=== PATIENT | female | born 1930 | race African-American/Black ===

== ENCOUNTER 2018-01-02 16:06 | Inpatient (IN) ==
[2018-01-02] MEDS ORDERED: ALUM/MAG/SIMETH/LIDO VISC 1:1 30 ML BOTTLE PO STA (16:44)
[2018-01-02] MEDS ORDERED: ONDANSETRON 4 MG/2 ML VIAL IV PRN ×2 (16:44→19:02)
[2018-01-02] MEDS ORDERED: SODIUM CHLORIDE 0.9% 1,000 ML IV STA (16:44)
[2018-01-02] MEDS ORDERED: PANTOPRAZOLE 40 MG VIAL IV STA (16:44)
[2018-01-02 17:22] LABS: Apearance,Urine CLEAR (Clear); Bilirubin,Urine Negative (Negative); Blood, Urine Small mg/dL (Negative); Glucose,Urine (UA) Negative (Negative); Hyaline Casts,Urine 1 /LPF (0-3); Ketones,Urine Negative (Negative); Nitrite,Urine Negative (Negative); Protein,Urine 100 MG/DL; RBC,Urine 1 /HPF (0-4); Urine Color Straw (Yellow); Urine Specific Gravity 1.009 (1.001-1.035); Urine Urobilinogen < 2.0 EU/DL (0.2-1.0); WBC,Urine 1 /HPF (0-6)
[2018-01-02 17:56] LABS: Basophils % 0.6 % (0.0-0.8); Eosinophils # 0.1 10*3/uL (0.0-0.87); Eosinophils % 2.9 % (0.00-10.9); Hematocrit 37.5 VOL% (35.7-47.0); Hemoglobin 12.2 GM/DL (12.0-16.0); Immature Granulocytes % 0.4 %; Immature Granulocytes Absolute 0.02 #; Lymphocytes # 1.1 10*3/uL (1.4-4.0); Lymphocytes % 22.7 % (21.3-54.2); Mean Corpuscular HGB Conc 32.5 GM/DL (32-36); Mean Corpuscular Hemoglobin 27 PG (27-34); Mean Corpuscular Volume 81.7 FL (87-102); Mean Platelet Volume 9.9 FL (9.6-12.0); Monocytes # 0.5 10*3/uL (0.11-0.8); Monocytes % 10.5 % (1.7-12.7); Neutrophils % 62.9 % (38.7-73.9); Platelet Count 220 T/CUMM (130-400); Red Blood Count 4.59 MC/CUMM (3.8-5.5); Red Cell Distribution Width 15.6 % (9.3-17.3); White Blood Count 4.8 T/CUMM (4-12)
[2018-01-02 18:21] LABS: Albumin 3.8 G/DL (3.4-5.0); Bilirubin,Total 0.4 MG/DL (0.2-1.0); Calcium 9.9 MG/DL (8.5-10.1); Lactic Acid 1.6 MMOL/L (0.4-2.0); Potassium 3.9 MMOL/L (3.5-5.1); Total Protein 6.7 G/DL (6.4-8.3)
[2018-01-02] MEDS ORDERED: MORPHINE 4 MG/1 ML VIAL IV STA (18:47)
[2018-01-02] MEDS ORDERED: ONDANSETRON 4 MG/2 ML VIAL IV STA (18:47)
[2018-01-02] MEDS ORDERED: hydrALAZINE 20 MG/1 ML VIAL IV STA (18:47)
[2018-01-02] MEDS ORDERED: ASPIRIN CHEW 81 MG TABLET PO STA (18:47)
[2018-01-02] MEDS ORDERED: ENOXAPARIN 80 MG/0.8 ML SYRINGE SUBCUT STA (18:47)
[2018-01-02] MEDS ORDERED: MORPHINE 4 MG/1 ML VIAL IV PRN ×2 (19:02→19:51)
[2018-01-02] MEDS ORDERED: ACETAMINOPHEN 325 MG TABLET PO PRN (19:02)
[2018-01-02] MEDS ORDERED: NITROGLYCERIN SL 0.4 MG TABLET SL PRN (19:07)
[2018-01-02] MEDS ORDERED: MECLIZINE 25 MG TABLET PO PRN (19:07)
[2018-01-02] MEDS ORDERED: DEXTROSE 50% 25 GM/50 ML VIAL IV PRN (20:18)
[2018-01-02] MEDS ORDERED: GLUCAGON 1 MG VIAL IM PRN (20:18)
[2018-01-02] MEDS ORDERED: CARVEDILOL 3.125 MG TABLET PO SCH (21:00)
[2018-01-02] MEDS: GABAPENTIN 300 MG CAPSULE PO SCH (22:10)
[2018-01-02] MEDS: SODIUM CHLORIDE 0.9% 1,000 ML IV SCH (22:10)
[2018-01-02] MEDS: FAMOTIDINE 20 MG TABLET PO SCH (22:10)
[2018-01-02] MEDS: METOPROLOL TARTRATE 50 MG TABLET PO SCH (22:10)
[2018-01-02] MEDS: ALPRAZolam 0.25 MG TABLET PO SCH (22:10)
[2018-01-02] MEDS: INSULIN LISPRO 100 UNIT/ML SUBCUT SCH (22:22)
[2018-01-03 04:40] LABS: Basophils % 0.8 % (0.0-0.8); Eosinophils # 0.2 10*3/uL (0.0-0.87); Eosinophils % 3.5 % (0.00-10.9); Hematocrit 34.4 VOL% (35.7-47.0); Hemoglobin 11.3 GM/DL (12.0-16.0); Immature Granulocytes % 0.2 %; Immature Granulocytes Absolute 0.01 #; Lymphocytes # 1.1 10*3/uL (1.4-4.0); Lymphocytes % 22.4 % (21.3-54.2); Mean Corpuscular HGB Conc 32.8 GM/DL (32-36); Mean Corpuscular Hemoglobin 27 PG (27-34); Mean Corpuscular Volume 81.1 FL (87-102); Mean Platelet Volume 10.5 FL (9.6-12.0); Monocytes # 0.6 10*3/uL (0.11-0.8); Monocytes % 11.9 % (1.7-12.7); Neutrophils % 61.2 % (38.7-73.9); Platelet Count 200 T/CUMM (130-400); Red Blood Count 4.24 MC/CUMM (3.8-5.5); Red Cell Distribution Width 15.9 % (9.3-17.3); White Blood Count 4.9 T/CUMM (4-12)
[2018-01-03] MEDS: SODIUM CHLORIDE 0.9% 1,000 ML IV SCH ×3 (05:55→21:14)
[2018-01-03 06:07] LABS: CKMB % 17.7 %
[2018-01-03 06:11] LABS: Troponin I 10.6 NG/ML (0.00-0.045)
[2018-01-03 06:51] LABS: Alanine Aminotransferase 16 U/L (13-56); Albumin 2.8 G/DL (3.4-5.0); Alkaline Phosphatase 68 U/L (45-117); Aspartate Amino Transferase < 3 U/L (0-37); Blood Urea Nitrogen 13 MG/DL (7-18); Calcium 8.5 MG/DL (8.5-10.1); Cholesterol 155 MG/DL (50-200); Glucose 107 MG/DL (74-106); HDL Cholesterol 38 MG/DL (40-60); Osmolality,Calculated 285.8 MOS/KG (273-304); Potassium 4.1 MMOL/L (3.5-5.1); Risk Ratio 4.08; Sodium 144 MMOL/L (136-145); Thyroid Stimulating Hormone 0.602 uIU/ml (0.358-3.74); Total Protein 5.8 G/DL (6.4-8.3); Triglycerides 97 MG/DL (2-150); VLDL CHOLESTEROL 19.4 MG/DL
[2018-01-03] MEDS ORDERED: ISOSORBIDE MONONITRATE 30 MG TABLET PO SCH (09:00)
[2018-01-03] MEDS: INSULIN LISPRO 100 UNIT/ML SUBCUT SCH ×4 (09:01→21:17)
[2018-01-03] MEDS: PANTOPRAZOLE 40 MG TABLET PO SCH (09:13)
[2018-01-03] MEDS: ALPRAZolam 0.25 MG TABLET PO SCH ×2 (09:13→21:15)
[2018-01-03] MEDS: CLOPIDOGREL 75 MG TABLET PO SCH (09:13)
[2018-01-03] MEDS: METOPROLOL TARTRATE 50 MG TABLET PO SCH ×4 (09:13→21:20)
[2018-01-03] MEDS: SERTRALINE 25 MG TABLET PO SCH (09:13)
[2018-01-03] MEDS: GABAPENTIN 300 MG CAPSULE PO SCH ×3 (09:13→21:15)
[2018-01-03] MEDS: ASPIRIN EC 81 MG TABLET PO SCH (09:13)
[2018-01-03] MEDS: ALLOPURINOL 100 MG TABLET PO SCH (09:13)
[2018-01-03] MEDS: ISOSORBIDE MONONITRATE 30 MG TABLET PO SCH (09:14)
[2018-01-03 09:53] LABS: CKMB % 16.2 %
[2018-01-03 09:54] LABS: Troponin I 13.7 NG/ML (0.00-0.045)
[2018-01-03] MEDS ORDERED: diphenhydrAMINE CAP 25 MG CAPSULE PO ONE (14:52)
[2018-01-03] MEDS ORDERED: DIAZEPAM 5 MG TABLET PO ONE (14:52)
[2018-01-03] MEDS ORDERED: NITROGLYCERIN DRIP 50 MG/250 ML BOTTLE IV ONE (15:42)
[2018-01-03] MEDS ORDERED: MIDAZOLAM 2 MG/2 ML VIAL ONE (15:42)
[2018-01-03] MEDS ORDERED: VERAPAMIL 5 MG/2 ML VIAL ONE (15:42)
[2018-01-03] MEDS ORDERED: fentaNYL 100 MCG/2 ML VIAL ONE (15:42)
[2018-01-03] MEDS ORDERED: LIDOCAINE 1% 20 ML VIAL ONE (15:42)
[2018-01-03] MEDS ORDERED: ENOXAPARIN 60 MG/0.6 ML SYRINGE ONE (16:00)
[2018-01-03] MEDS ORDERED: CLOPIDOGREL 300 MG TABLET ONE (16:22)
[2018-01-03] MEDS ORDERED: HEPARIN/NACL 0.9% 2 UNITS/ML 1,000 ML IV ONE (16:22)
[2018-01-03] MEDS ORDERED: ZALEPLON 5 MG CAPSULE PO PRN (16:28)
[2018-01-03] MEDS ORDERED: ENOXAPARIN 40 MG/0.4 ML SYRINGE SUBCUT SCH (18:00)
[2018-01-03] MEDS: FAMOTIDINE 20 MG TABLET PO SCH (21:15)
[2018-01-03] MEDS: ATORVASTATIN 40 MG TABLET PO SCH (21:15)
[2018-01-04] MEDS: SODIUM CHLORIDE 0.9% 1,000 ML IV SCH ×2 (01:26→09:47)
[2018-01-04 05:47] LABS: Basophils % 0.7 % (0.0-0.8); Eosinophils # 0.2 10*3/uL (0.0-0.87); Eosinophils % 3.5 % (0.00-10.9); Hematocrit 30.9 VOL% (35.7-47.0); Hemoglobin 9.9 GM/DL (12.0-16.0); Immature Granulocytes % 0.4 %; Immature Granulocytes Absolute 0.02 #; Lymphocytes # 0.9 10*3/uL (1.4-4.0); Lymphocytes % 20.3 % (21.3-54.2); Mean Corpuscular Hemoglobin 26 PG (27-34); Mean Platelet Volume 9.7 FL (9.6-12.0); Monocytes # 0.5 10*3/uL (0.11-0.8); Monocytes % 10.7 % (1.7-12.7); Neutrophils % 64.4 % (38.7-73.9); Platelet Count 184 T/CUMM (130-400); Red Blood Count 3.77 MC/CUMM (3.8-5.5); Red Cell Distribution Width 15.7 % (9.3-17.3); White Blood Count 4.6 T/CUMM (4-12)
[2018-01-04 05:58] LABS: Calcium 8.2 MG/DL (8.5-10.1); Osmolality,Calculated 286.8 MOS/KG (273-304); Potassium 4.1 MMOL/L (3.5-5.1)
[2018-01-04] MEDS: FUROSEMIDE 40 MG TABLET PO SCH (09:32)
[2018-01-04] MEDS: CLOPIDOGREL 75 MG TABLET PO SCH (09:33)
[2018-01-04] MEDS: SERTRALINE 25 MG TABLET PO SCH (09:33)
[2018-01-04] MEDS: ASPIRIN EC 81 MG TABLET PO SCH (09:33)
[2018-01-04] MEDS: POTASSIUM CHLORIDE 20 MEQ TABLET PO SCH (09:33)
[2018-01-04] MEDS: METOPROLOL TARTRATE 50 MG TABLET PO SCH ×2 (09:33→21:50)
[2018-01-04] MEDS: GABAPENTIN 300 MG CAPSULE PO SCH ×3 (09:33→21:49)
[2018-01-04] MEDS: ALPRAZolam 0.25 MG TABLET PO SCH ×2 (09:34→21:50)
[2018-01-04] MEDS: ISOSORBIDE MONONITRATE 30 MG TABLET PO SCH (09:34)
[2018-01-04] MEDS: ALLOPURINOL 100 MG TABLET PO SCH (09:34)
[2018-01-04] MEDS: PANTOPRAZOLE 40 MG TABLET PO SCH (09:35)
[2018-01-04] MEDS: INSULIN LISPRO 100 UNIT/ML SUBCUT SCH ×4 (09:46→21:50)
[2018-01-04] MEDS ORDERED: POTASSIUM CHLORIDE 20 MEQ TABLET PO ONE (18:12)
[2018-01-04] MEDS ORDERED: FUROSEMIDE 40 MG/4 ML VIAL IV ONE (18:12)
[2018-01-04] MEDS: ATORVASTATIN 40 MG TABLET PO SCH (21:50)
[2018-01-04] MEDS: FAMOTIDINE 20 MG TABLET PO SCH (21:50)
[2018-01-05 01:01] LABS: Apearance,Urine CLEAR (Clear); Bilirubin,Urine Negative (Negative); Blood, Urine Negative (Negative); Glucose,Urine (UA) Negative (Negative); Ketones,Urine Negative (Negative); Nitrite,Urine Negative (Negative); Protein,Urine Negative; Renal Epithelial Cells,Urine Occasional /HPF (<1); Squamous Epithelial Cell,Urine Occasional /HPF (0-10); Urine Color Straw (Yellow); Urine Specific Gravity 1.008 (1.001-1.035); Urine Urobilinogen < 2.0 EU/DL (0.2-1.0); WBC,Urine 4 /HPF (0-6)
[2018-01-05 05:57] LABS: Basophils % 0.5 % (0.0-0.8); Eosinophils # 0.2 10*3/uL (0.0-0.87); Eosinophils % 3.3 % (0.00-10.9); Hematocrit 32.1 VOL% (35.7-47.0); Hemoglobin 10.7 GM/DL (12.0-16.0); Immature Granulocytes % 0.4 %; Immature Granulocytes Absolute 0.02 #; Mean Corpuscular HGB Conc 33.3 GM/DL (32-36); Mean Corpuscular Hemoglobin 27 PG (27-34); Mean Corpuscular Volume 79.9 FL (87-102); Mean Platelet Volume 9.8 FL (9.6-12.0); Monocytes # 0.6 10*3/uL (0.11-0.8); Neutrophils # 3.9 10*3/uL (1.4-7.4); Neutrophils % 67.8 % (38.7-73.9); Platelet Count 202 T/CUMM (130-400); Red Blood Count 4.02 MC/CUMM (3.8-5.5); Red Cell Distribution Width 15.6 % (9.3-17.3); White Blood Count 5.7 T/CUMM (4-12)
[2018-01-05 06:19] LABS: Calcium 9.4 MG/DL (8.5-10.1); Osmolality,Calculated 286.1 MOS/KG (273-304); Potassium 4.4 MMOL/L (3.5-5.1)
[2018-01-05 06:21] LABS: Calcium 9.3 MG/DL (8.5-10.1); Osmolality,Calculated 286.1 MOS/KG (273-304); Potassium 4.4 MMOL/L (3.5-5.1)
[2018-01-05] MEDS ORDERED: LOSARTAN 25 MG TABLET PO SCH (09:00)
[2018-01-05] MEDS: ASPIRIN EC 81 MG TABLET PO SCH (09:13)
[2018-01-05] MEDS: PANTOPRAZOLE 40 MG TABLET PO SCH (09:14)
[2018-01-05] MEDS: CLOPIDOGREL 75 MG TABLET PO SCH (09:14)
[2018-01-05] MEDS: ISOSORBIDE MONONITRATE 30 MG TABLET PO SCH (09:14)
[2018-01-05] MEDS: FUROSEMIDE 40 MG TABLET PO SCH (09:15)
[2018-01-05] MEDS: SERTRALINE 25 MG TABLET PO SCH (09:15)
[2018-01-05] MEDS: ALLOPURINOL 100 MG TABLET PO SCH (09:16)
[2018-01-05] MEDS: POTASSIUM CHLORIDE 20 MEQ TABLET PO SCH (09:16)
[2018-01-05] MEDS: ALPRAZolam 0.25 MG TABLET PO SCH ×2 (09:16→21:02)
[2018-01-05] MEDS ORDERED: cefTRIAXone 2,000 MG in SODIUM CHLORIDE 0.9% 100 ML IV ONE (11:22)
[2018-01-05 11:24] LABS: % Iron Saturation 11.5 % (18-50); Ferritin 65.6 ng/ml (8-252)
[2018-01-05 11:33] LABS: Folate 9.4 NG/ML (5.4-24.0)
[2018-01-05] MEDS: INSULIN LISPRO 100 UNIT/ML SUBCUT SCH ×4 (11:56→21:02)
[2018-01-05] MEDS: GABAPENTIN 300 MG CAPSULE PO SCH ×3 (11:56→21:01)
[2018-01-05] MEDS: ALBUTEROL/IPRATROPIUM 3 ML NEB RESP TX SCH ×2 (13:10→19:33)
[2018-01-05] MEDS ORDERED: CYANOCOBALAMIN 1000 MCG/1 ML VIAL IM ONE (13:15)
[2018-01-05] MEDS: FERROUS SULFATE 325 MG TABLET PO SCH ×2 (16:38→21:02)
[2018-01-05] MEDS: METOPROLOL TARTRATE 50 MG TABLET PO SCH (21:01)
[2018-01-05] MEDS: ATORVASTATIN 40 MG TABLET PO SCH (21:01)
[2018-01-05] MEDS: CYANOCOBALAMIN 500 MCG TABLET PO SCH (21:01)
[2018-01-05] MEDS: FAMOTIDINE 20 MG TABLET PO SCH (21:01)
[2018-01-05] MEDS: FOLIC ACID 1 MG TABLET PO SCH (21:05)
[2018-01-06] MEDS: ALBUTEROL/IPRATROPIUM 3 ML NEB RESP TX SCH ×4 (00:12→19:53)
[2018-01-06 04:57] LABS: Basophils % 0.4 % (0.0-0.8); Eosinophils # 0.2 10*3/uL (0.0-0.87); Eosinophils % 3.5 % (0.00-10.9); Hematocrit 33.3 VOL% (35.7-47.0); Hemoglobin 10.9 GM/DL (12.0-16.0); Immature Granulocytes % 0.7 %; Immature Granulocytes Absolute 0.04 #; Lymphocytes # 0.9 10*3/uL (1.4-4.0); Lymphocytes % 15.6 % (21.3-54.2); Mean Corpuscular HGB Conc 32.7 GM/DL (32-36); Mean Corpuscular Hemoglobin 27 PG (27-34); Mean Corpuscular Volume 82.2 FL (87-102); Monocytes # 0.5 10*3/uL (0.11-0.8); Monocytes % 9.2 % (1.7-12.7); Neutrophils # 3.8 10*3/uL (1.4-7.4); Neutrophils % 70.6 % (38.7-73.9); Platelet Count 210 T/CUMM (130-400); Red Blood Count 4.05 MC/CUMM (3.8-5.5); Red Cell Distribution Width 15.5 % (9.3-17.3); White Blood Count 5.4 T/CUMM (4-12)
[2018-01-06 05:04] LABS: Calcium 9.1 MG/DL (8.5-10.1); Osmolality,Calculated 288.1 MOS/KG (273-304); Potassium 4.1 MMOL/L (3.5-5.1); Potassium 4.2 MMOL/L (3.5-5.1)
[2018-01-06 05:36] LABS: Eosinophils 10 % (0-10); Lymphocytes 12 % (20-55); Segmented Neutrophils 73 % (50-85); Total Cells Counted 100
[2018-01-06 05:37] LABS: Hypochromasia 1+; Ovalocytes 2+; Platelet Estimate Normal
[2018-01-06 05:38] LABS: Polychromasia Few; Tear Drop Cells Few
[2018-01-06] MEDS: INSULIN LISPRO 100 UNIT/ML SUBCUT SCH ×4 (09:49→21:11)
[2018-01-06] MEDS: METOPROLOL TARTRATE 50 MG TABLET PO SCH ×2 (09:51→21:12)
[2018-01-06] MEDS: FUROSEMIDE 40 MG TABLET PO SCH (09:52)
[2018-01-06] MEDS: ALPRAZolam 0.25 MG TABLET PO SCH ×2 (09:52→21:12)
[2018-01-06] MEDS: PANTOPRAZOLE 40 MG TABLET PO SCH (09:52)
[2018-01-06] MEDS: FERROUS SULFATE 325 MG TABLET PO SCH ×3 (09:52→21:11)
[2018-01-06] MEDS: SERTRALINE 25 MG TABLET PO SCH (09:52)
[2018-01-06] MEDS: ASPIRIN EC 81 MG TABLET PO SCH (09:52)
[2018-01-06] MEDS: ISOSORBIDE MONONITRATE 30 MG TABLET PO SCH (09:52)
[2018-01-06] MEDS: POTASSIUM CHLORIDE 20 MEQ TABLET PO SCH (09:53)
[2018-01-06] MEDS: GABAPENTIN 300 MG CAPSULE PO SCH ×3 (09:53→21:12)
[2018-01-06] MEDS: ALLOPURINOL 100 MG TABLET PO SCH (09:53)
[2018-01-06] MEDS: CYANOCOBALAMIN 500 MCG TABLET PO SCH ×2 (09:53→21:11)
[2018-01-06] MEDS: CLOPIDOGREL 75 MG TABLET PO SCH (09:54)
[2018-01-06] MEDS: FOLIC ACID 1 MG TABLET PO SCH (21:12)
[2018-01-06] MEDS: ATORVASTATIN 40 MG TABLET PO SCH (21:12)
[2018-01-06] MEDS: COLCHICINE 0.6 MG TABLET PO SCH (21:12)
[2018-01-06] MEDS: FAMOTIDINE 20 MG TABLET PO SCH (21:13)
[2018-01-07] MEDS: ALBUTEROL/IPRATROPIUM 3 ML NEB RESP TX SCH ×2 (01:10→07:49)
[2018-01-07 03:44] LABS: Basophils % 0.3 % (0.0-0.8); Eosinophils # 0.2 10*3/uL (0.0-0.87); Eosinophils % 3.7 % (0.00-10.9); Hemoglobin 10.5 GM/DL (12.0-16.0); Immature Granulocytes % 0.3 %; Immature Granulocytes Absolute 0.02 #; Lymphocytes # 0.8 10*3/uL (1.4-4.0); Mean Corpuscular HGB Conc 32.8 GM/DL (32-36); Mean Corpuscular Hemoglobin 27 PG (27-34); Mean Corpuscular Volume 81.8 FL (87-102); Mean Platelet Volume 9.9 FL (9.6-12.0); Monocytes # 0.6 10*3/uL (0.11-0.8); Monocytes % 8.9 % (1.7-12.7); Neutrophils # 4.6 10*3/uL (1.4-7.4); Neutrophils % 73.8 % (38.7-73.9); Platelet Count 211 T/CUMM (130-400); Red Blood Count 3.91 MC/CUMM (3.8-5.5); Red Cell Distribution Width 15.6 % (9.3-17.3); White Blood Count 6.2 T/CUMM (4-12)
[2018-01-07 04:28] LABS: Calcium 9.7 MG/DL (8.5-10.1); Osmolality,Calculated 286.4 MOS/KG (273-304); Potassium 4.6 MMOL/L (3.5-5.1)
[2018-01-07] MEDS: INSULIN LISPRO 100 UNIT/ML SUBCUT SCH ×2 (08:09→12:13)
[2018-01-07] MEDS: ALLOPURINOL 100 MG TABLET PO SCH (09:33)
[2018-01-07] MEDS: ISOSORBIDE MONONITRATE 30 MG TABLET PO SCH (09:33)
[2018-01-07] MEDS: CYANOCOBALAMIN 500 MCG TABLET PO SCH (09:33)
[2018-01-07] MEDS: SERTRALINE 25 MG TABLET PO SCH (09:34)
[2018-01-07] MEDS: CLOPIDOGREL 75 MG TABLET PO SCH (09:34)
[2018-01-07] MEDS: GABAPENTIN 300 MG CAPSULE PO SCH (09:34)
[2018-01-07] MEDS: COLCHICINE 0.6 MG TABLET PO SCH (09:34)
[2018-01-07] MEDS: ALPRAZolam 0.25 MG TABLET PO SCH (09:34)
[2018-01-07] MEDS: METOPROLOL TARTRATE 50 MG TABLET PO SCH (09:34)
[2018-01-07] MEDS: ASPIRIN EC 81 MG TABLET PO SCH (09:34)
[2018-01-07] MEDS: POTASSIUM CHLORIDE 20 MEQ TABLET PO SCH (09:35)
[2018-01-07] MEDS: FUROSEMIDE 40 MG TABLET PO SCH (09:35)
[2018-01-07] MEDS: FERROUS SULFATE 325 MG TABLET PO SCH (09:35)
[2018-01-07] MEDS: PANTOPRAZOLE 40 MG TABLET PO SCH (09:35)
[2018-01-07 12:43] VITALS: BP 122/58
== END 2018-01-07 12:30 | disposition home health service (06) | DRG 247 ==
LOC: EDBD → EDUNIT# → N.EDINP 16:06 → N.ED 16:06 → N.TELEN 20:17
PROVIDERS: ADMIT Internal Medicine; ATTEND Internal Medicine
PROC: CLCCHCL (ICD-10-PCS; 2018-01-03 15:15)